=== PATIENT | female | born 1995 | race Caucasian/White ===

== ENCOUNTER 2022-01-21 15:00 | Emergency (ER) | payer OTHER, SELFPAY ==
--- NOTE | 2022-01-21 15:07 | ED.URI ---
HPI - URI/Sore Throat General Chief Complaint: Ear Stated Complaint: Ear Pain/Vomiting Time Seen by Provider: 01/21/22 15:08 Source: patient and RN notes reviewed History of Present Illness HPI Narrative: Patient is a 26-year-old female who presents the urgent care with complaints of right ear pain and vomiting. Patient states that the stomach flu is been going around work and after she was vomited on Wednesday evening she went home and started vomiting. Patient denies any abdominal pain or fever but states that she has had consistent nausea. Also reports of decreased urinary output with dark urine. Patient states the drainage from the right ear has been ongoing for several months and she has been cleaning out with Q-tips. Denies of any recent fever. No other acute complaints. No acute distress noted. Patient aware of the plan of care. Some parts of this dictation were generated by voice recognition software and may contain typographical and/or grammatical inaccuracies. Related Data Allergies Allergy/AdvReac Type Severity Reaction Status Date / Time red dye Allergy Unknown Nausea Verified 01/21/22 15:15 Review of Systems Review of Systems: CONSTITUTIONAL: Denies fever, chills, or sweats. EYES: Denies visual changes, redness, or discharge. ENT: Denies rhinorrhea, congestion, sore throat. Reports of drainage from the right ear CARDIOVASCULAR: Denies chest pain, palpitations, or edema. RESPIRATORY: Denies cough or dyspnea. GASTROINTESTINAL: Reports of nausea and vomiting without abdominal pain GENITOURINARY: Reports of decreased urinary output and dark urine SKIN: Denies rash or itching. MUSCULOSKELETAL: Denies back pain, joint pain, or myalgia. NEUROLOGIC: Denies headache, numbness, or weakness. All other systems reviewed are negative, except as documented in HPI. PMFSH Comments At the time of my signature, I reviewed and agree with the nursing past medical, surgical, social, and family history. There is no relevant family history pertinent to the patient complaint. Exam Narrative: GENERAL: This is a well-nourished, well-developed patient, in no apparent distress. HEAD: normocephalic, atraumatic. EYES: PERRL. Sclera clear/white. Vision is grossly intact. EARS: External ears normal, left auditory canal clear and without drainage, thick yellow drainage to the right auditory ear canal with inability to visualize right TM. Left TM normal without perforation. Hearing grossly intact. NOSE: External nose normal with no obvious nasal discharge, nares without redness, no rhinorrhea. THROAT: Mucous membranes moist, posterior pharynx clear. NECK: Neck supple CARDIOVASCULAR: Regular rate and rhythm without murmurs, gallops, or rubs. RESPIRATORY: Clear to auscultation. Breath sounds equal bilaterally. No wheezes, rales, or rhonchi. GASTROINTESTINAL: Abdomen soft, non-tender, nondistended. Bowel sounds are hypoactive. No guarding. SKIN: warm, intact with no suspicious lesions or rash, good texture and turgor. NEURO: awake, alert, and oriented to person, place and time. There were no obvious focal neurologic abnormalities. EXTREMITIES: No clubbing, cyanosis, or edema. BACK: No flank tenderness. Course Course Level of Care: Express Care Visit Vital Signs Vital signs: Vital Signs Temperature 98.8 F 01/21/22 15:09 Pulse Rate 82 01/21/22 15:09 Respiratory Rate 16 01/21/22 15:09 Blood Pressure 176/77 H 01/21/22 15:09 Pulse Oximetry 100 01/21/22 15:09 Temperature 98.8 F 01/21/22 15:09 Pulse Rate 82 01/21/22 15:09 Respiratory Rate 16 01/21/22 15:09 Blood Pressure 176/77 H 01/21/22 15:09 Pulse Oximetry 100 01/21/22 15:09 Reviewed-patient is informed that they may have pre-hypertension or hypertension based on a blood pressure reading in the department. I recommend the patient call the primary care provider listed on their discharge instructions or a physician of their choice this week to arrange follow-up fo
[2022-01-21 15:09] VITALS: BP 176/77; PULSE 82; RESP 16; TEMP 37.1; O2SAT 100
== END 2022-01-21 15:57 | disposition home or self-care (01) ==
PROVIDERS: Emergency Provider Nurse Practitioner Family
DX: H66.91 Otitis media, unspecified, right ear (principal); H60.91 Unspecified otitis externa, right ear; R11.2 Nausea with vomiting, unspecified
CPT/HCPCS: 81003; 99203; G0463

== ENCOUNTER 2022-05-15 14:17 | Emergency (ER) | payer OTHER, SELFPAY ==
[2022-05-15 14:21] VITALS: BP 113/78; PULSE 91; RESP 18; TEMP 36.7; O2SAT 100
--- NOTE | 2022-05-15 14:47 | ED.GENADULT ---
HPI - General Adult General Chief complaint: Nausea/Vomiting/Diarrhea Stated complaint: nausea headache body aches Time Seen by Provider: 05/15/22 14:30 Source: patient, RN notes reviewed and old records reviewed Mode of arrival: ambulatory Limitations: no limitations History of Present Illness HPI narrative: 27 year old female who presents to [facility] with complaints of nausea and vomiting , body aches with no fevers, and headaches for the past 2 days. Patient is very upset because her work is giving her a hard time because she called off of work. Patient states that she has had emesis X5 and continues to have nausea. Patient reports that she has had COVID vaccinations and was screened at work on Wednesday. MD complaint: nausea and vomiting, headaches, body aches Onset (ago): day(s) (2) Severity scale (1-10): 5 Quality: aching Related Data Allergies Allergy/AdvReac Type Severity Reaction Status Date / Time red dye Allergy Unknown Nausea Verified 05/15/22 14:49 Review of Systems Review of Systems: CONSTITUTIONAL: Denies fever, chills, or sweats. EYES: Denies visual changes, redness, or discharge. ENT: Denies rhinorrhea, congestion, sore throat, or otalgia. CARDIOVASCULAR: Denies chest pain, palpitations, or edema. RESPIRATORY: Denies cough or dyspnea. GASTROINTESTINAL: Denies abdominal pain,positive for nausea, vomiting, no diarrhea. GENITOURINARY: Denies dysuria or hematuria. SKIN: Denies rash or itching. MUSCULOSKELETAL: Denies back pain, joint pain, positive for body aches NEUROLOGIC: Positive for headache,no numbness, or weakness. PSYCHIATRIC: Denies anxiety or depression. All systems reviewed & are unremarkable except as noted in HPI and below PMFSH Past Medical History Medical History (Updated 05/16/22 @ 17:07 by Elda Thurman NP) Ear infection Foot fracture, right Surgical History Surgical History (Updated 05/16/22 @ 17:07 by Elda Thurman NP) History of ear surgery Status post right foot surgery X2 posterior tendon repair Social History Social History (Updated 05/16/22 @ 17:04 by Elda Thurman NP) Smoking packs per day: 0.5 Smoking cigarettes per day: 10.0 Years smoked: 5 Smoking pack-years: 2.50 Smoking status: Current every day smoker Tobacco type: cigarettes Alcohol intake: current Alcohol use details: social Substance use type: does not use Gender identity (if verbalized by the patient): Female Comments At time of signature, agree with nursing past medical, surgical, social and family history. There is no relevant family history pertinent to the presenting complaint Exam Narrative: GENERAL: Well-appearing, well-nourished, and in no acute distress.tearful over job issues HEAD: Normocephalic, atraumatic. EYES: PERRLA and EOMI. ENT: Nares clear, no rhinorrhea or epistaxis. Mucous membranes moist.TM;s normal with good light reflex, throat pink with no lesions or exudates or tonsil swelling NECK: Supple.no lymphadenopathy CHEST: Clear to auscultation. No respiratory distress. No cough or congestion SaO2 100% on room air HEART: Regular rate and rhythm. No murmur heard. Normal peripheral pulses. ABDOMEN: Soft, nontender, nondistended, normal active bowel sounds, No suprapubic tenderness, continued nausea with incidences of vomiting EXTREMITIES: Normal range of motion. No edema. SKIN: Warm, dry, no rash. NEURO: No focal deficits. Alert and oriented x3. Course Course Level of Care: Express Care Visit Vital Signs Vital signs: Vital Signs Temperature 36.7 C 05/15/22 14:21 Pulse Rate 91 05/15/22 14:21 Respiratory Rate 18 05/15/22 14:21 Blood Pressure 113/78 05/15/22 14:21 Pulse Oximetry 100 05/15/22 14:21 Oxygen Delivery Room Air 05/15/22 14:21 Temperature 36.7 C 05/15/22 14:21 Pulse Rate 91 05/15/22 14:21 Respiratory Rate 18 05/15/22 14:21 Blood Pressure 113/78 05/15/22 14:21 Pulse Oximetry 100 05/15/22 14:21 Oxygen Deli
== END 2022-05-15 15:10 | disposition home or self-care (01) ==
PROVIDERS: Emergency Provider Registered Nurse
DX: R11.2 Nausea with vomiting, unspecified (principal); Z20.822 Contact with and (suspected) exposure to COVID-19; F17.210 Nicotine dependence, cigarettes, uncomplicated
CPT/HCPCS: 87426; 99213; C9803; G0463

== ENCOUNTER 2022-08-30 14:54 | Emergency (ER) | payer OTHER, SELFPAY ==
[2022-08-30 15:04] VITALS: BP 121/54; PULSE 70; RESP 18; TEMP 37.1; O2SAT 99
--- NOTE | 2022-08-30 16:32 | ED.URI ---
HPI - URI/Sore Throat General Chief Complaint: Upper Respiratory Infection Stated Complaint: upper respiratory Source: patient and family (Significant other) Mode of arrival: ambulatory Limitations: no limitations History of Present Illness HPI Narrative: 27-year-old female presents to [facility] from his sore throat, fatigue, headache, cough, runny nose and nasal congestion for the past 4 days. Patient is currently 5 weeks . Patient is a smoker. Patient denies recent travel. Patient denies wheezing, shortness of breath, nausea vomiting with refill MD elicited complaint: rhinorrhea and nasal congestion Onset (ago): day(s) Severity: mild Able to tolerate fluids by mouth: Yes Treatments prior to arrival: cold medicine Related Data Allergies Allergy/AdvReac Type Severity Reaction Status Date / Time red dye Allergy Unknown Nausea Verified 08/30/22 15:46 Review of Systems Constitutional: Constitutional: Reports fatigue and Denies fever(s) ENT: Denies vertigo, Denies dizziness, Reports nasal congestion and Reports sore throat Respiratory: Respiratory: Reports cough, Denies dyspnea and Denies wheezing Gastrointestinal: Gastrointestinal: Denies diarrhea, Denies nausea and Denies vomiting Integumentary/Breasts: Skin/Breast: Denies rash Neurologic: Denies dizziness and Denies headache(s) Allergic/Immunologic: Allergic/Immunologic: Denies lip swelling, Denies throat swelling, Denies tongue swelling and Denies wheezing PMFSH Past Medical History Medical History Ear infection Foot fracture, right Surgical History Surgical History History of ear surgery Status post right foot surgery X2 posterior tendon repair Social History Social History Smoking packs per day: 0.5 Smoking cigarettes per day: 10.0 Years smoked: 5 Smoking pack-years: 2.50 Smoking status: Current every day smoker Tobacco type: cigarettes Alcohol intake: current Alcohol use details: social Substance use type: does not use Gender identity (if verbalized by the patient): Female Comments At time of signature, I agree with nursing past medical, surgical, social and family history. There is no relevant family history pertinent to the presenting complaint. Exam Const: General: healthy appearing, no acute distress and alert Nutritional Appearance: well nourished Orientation/consciousness: patient oriented x3 Limitations: no limitations HENMT: Head: normal to inspection Ears: external ears normal Face/Nose/Sinus: Normal external nose present Face and sinus: normal facial exam and sinuses nontender Mouth: Yes Normal oral and palatal mucosa present and Yes moist mucous membranes Teeth and gingiva: dentition normal Throat: posterior oropharynx normal and uvula midline Neck: Neck: normal visual inspection Resp: Effort & Inspection: normal respiratory effort and not labored Auscultation: clear to auscultation bilaterally, no crackles, no rales, no rhonchi and no wheezes Cardio: Rate: regular rate Rhythm: regular rhythm Heart sounds: no murmurs Skin: General skin exam: normal color Rashes: no rashes Neuro: Speech: normal speech Gait exam (Neuro): Normal gait present Psych: Affect: normal affect Attitude: cooperative Course Course Level of Care: Express Care Visit Vital Signs Vital signs: Vital Signs Temperature 37.1 C 08/30/22 15:04 Pulse Rate 70 08/30/22 15:04 Respiratory Rate 18 08/30/22 15:04 Blood Pressure 121/54 L 08/30/22 15:04 Pulse Oximetry 99 08/30/22 15:04 Oxygen Delivery Room Air 08/30/22 15:04 Temperature 37.1 C 08/30/22 15:04 Pulse Rate 70 08/30/22 15:04 Respiratory Rate 18 08/30/22 15:04 Blood Pressure 121/54 L 08/30/22 15:04 Pulse Oximetry 99 08/30/22 15:04 Oxygen Delivery Room Air 08/30
== END 2022-08-30 16:53 | disposition home or self-care (01) ==
PROVIDERS: Emergency Provider Nurse Practitioner Family
DX: O99.511 Diseases of the respiratory system complicating pregnancy, first trimester (principal); Z3A.01 Less than 8 weeks gestation of pregnancy; J06.9 Acute upper respiratory infection, unspecified; O98.511 Other viral diseases complicating pregnancy, first trimester; B34.9 Viral infection, unspecified; F17.210 Nicotine dependence, cigarettes, uncomplicated
CPT/HCPCS: 87804; 99213; G0463

== ENCOUNTER 2023-01-20 13:23 | Emergency (ER) | payer OTHER, SELFPAY ==
--- NOTE | 2023-01-20 13:37 | ED.URI ---
HPI - URI/Sore Throat General Chief Complaint: Upper Respiratory Infection Stated Complaint: Sore Throat Source: patient and RN notes reviewed History of Present Illness HPI Narrative: 27-year-old female presents to urgent care with complaints of a sore throat x2 days. Patient reports feeling warm at home but not sure of fever. Patient denies any ear pain, congestion, vomiting, chest pain, shortness of breath or abdominal pain. Patient has not been taking anything for her symptoms. Some parts of this dictation were generated by voice recognition software and may contain typographical and/or grammatical inaccuracies. Related Data Home Medications Medication Instructions Recorded Confirmed norgestimate 0.25 mg-ethinyl See Rx Instructions .Route .COMPLEX 01/20/23 01/20/23 estradiol 35 mcg tablet (Pricila) Allergies Allergy/AdvReac Type Severity Reaction Status Date / Time red dye Allergy Unknown Nausea Verified 01/20/23 13:44 Review of Systems Review of Systems: Pertinent positives and pertinent negatives per HPI. [facility] Past Medical History Medical History Ear infection Foot fracture, right Surgical History Surgical History History of ear surgery Status post right foot surgery X2 posterior tendon repair Social History Social History Smoking packs per day: 0.5 Smoking cigarettes per day: 10.0 Years smoked: 5 Smoking pack-years: 2.50 Smoking status: Current every day smoker Tobacco type: cigarettes Alcohol intake: current Alcohol use details: social Substance use type: does not use Gender identity (if verbalized by the patient): Female Comments At the time of my signature, I reviewed and agree with the nursing past medical, surgical, social, and family history. There is no relevant family history pertinent to the patient complaint. Exam Narrative: GENERAL: This is a well-nourished, well-developed patient, in no apparent distress. HEAD: normocephalic, atraumatic. EYES: PERRL. Sclera clear/white. Vision is grossly intact. EARS: External ears normal, auditory canals clear and without drainage, TMs normal without perforation. Hearing grossly intact. NOSE: External nose normal with no obvious nasal discharge, nares without redness, no rhinorrhea. THROAT: Mucous membranes moist, posterior pharynx erythemic. No exudate noted. NECK: Neck supple, non-tender without lymphadenopathy, masses or thyromegaly. CARDIOVASCULAR: Regular rate and rhythm without murmurs, gallops, or rubs. RESPIRATORY: Clear to auscultation. Breath sounds equal bilaterally. No wheezes, rales, or rhonchi. GASTROINTESTINAL: Abdomen soft, non-tender, nondistended. Bowel sounds are active. No hepato-splenomegaly, or palpable masses. No guarding. SKIN: warm, intact with no suspicious lesions or rash, good texture and turgor. NEURO: awake, alert, and oriented to person, place and time. There were no obvious focal neurologic abnormalities. Course Course Level of Care: Express Care Visit Vital Signs Vital signs: Vital Signs Temperature 98.1 F 01/20/23 13:42 Pulse Rate 88 01/20/23 13:42 Respiratory Rate 18 01/20/23 13:42 Blood Pressure 145/75 H 01/20/23 13:42 Pulse Oximetry 100 01/20/23 13:42 Oxygen Delivery Room Air 01/20/23 13:42 Temperature 98.1 F 01/20/23 13:42 Pulse Rate 88 01/20/23 13:42 Respiratory Rate 18 01/20/23 13:42 Blood Pressure 145/75 H 01/20/23 13:42 Pulse Oximetry 100 01/20/23 13:42 Oxygen Delivery Room Air 01/20/23 13:42 Reviewed MDM - URI/Sore Throat MDM Narrative Medical decision making narrative: Rapid strep is negative in the office; however we will send to the lab for confirmation; there is a small percentage chance that it can come back positive; if it is, we will call you in 2-3days; and your pr
[2023-01-20 13:42] VITALS: BP 145/75; PULSE 88; RESP 18; TEMP 36.7; O2SAT 100
== END 2023-01-20 14:00 | disposition home or self-care (01) ==
PROVIDERS: Emergency Provider Nurse Practitioner Family
DX: J02.9 Acute pharyngitis, unspecified (principal); F17.210 Nicotine dependence, cigarettes, uncomplicated
CPT/HCPCS: 87081; 87880; 99213; G0463

== ENCOUNTER 2024-06-26 17:16 | Inpatient (IN) | payer OTHER, SELFPAY ==
[2024-06-26] VITALS (56 sets, daily range): BP systolic 61–123; BP diastolic 27–89; PULSE 59–227; TEMP 36.6–36.7; O2SAT 95–100; BMI 24.5
--- NOTE | 2024-06-26 17:16 | LDADM ---
This patient, Ladan Rain, was admitted to Labor/Delivery/Recovery [facility] on 06/26/24 at 17:16. Plans for labor, pain management and were discussed with patient. Patient/family oriented to hospital policies and general routines including ID bracelet, bed and alarms, visiting hours, pain management, procedures, bathroom and other care routines, personal items, smoking policy, room service/diet and guest tray routines, infant security routines, and visiting hours. Patient/Family are encouraged to report perceived risks to care and to ask questions if they do not understand what they are told or what they should do. See OBIX for further documentation.
[2024-06-26 18:01] LABS: Basophils Percent Auto 0.4 % (0.2-1.2); Eosinophils Absolute Auto 0.1 K/mm3 (0-0.3); Eosinophils Percent Auto 0.7 % (0-4.4); Hemoglobin 9.9 g/dL (12.0-15.0); Immature Granulocyte Percent A 0.9 % (0-0.5); Lymphocytes Absolute Auto 1.68 K/mm3 (0.9-3.2); Lymphocytes Percent Auto 15.5 % (18.3-44.2); Mean Corpuscular HGB Conc 31.9 g/dl (32-36); Mean Corpuscular Hemoglobin 27.4 pg (26-34); Mean Corpuscular Volume 85.9 fl (80-100); Mean Platelet Volume 11.7 fl (7.4-10.4); Monocytes Absolute Auto 0.9 K/mm3 (0.1-0.6); Monocytes Percent Auto 7.8 % (2.6-8.5); Neutrophils Absolute Auto 8.1 K/mm3 (1.3-6.7); Neutrophils Percent Auto 74.7 % (45.5-73.1); Platelet Count Result 240 k/mm3 (150-375); Red Blood Count 3.61 M/mm3 (4.2-5.4); Red Cell Distribution Width 13.7 % (11.5-14.5); White Blood Count 10.9 K/mm3 (4.5-10.0)
[2024-06-26] MEDS: miSOPROStol 25 MCG TABLET 50 MCG BUCCAL (18:19)
[2024-06-26 19:05] LABS: HIV 1/2 Ab P24 Ag Result Negative (Negative)
[2024-06-26 20:03] LABS: Rapid Plasma Reagin Non-Reactive (NonReactive)
--- NOTE | 2024-06-26 20:42 | WPDANESEPP ---
Anes - Eval Pre Procedure Procedure: labor epidural Date/Time: 06/26/24 20:42 Surgeon: edie Preop Diagnosis: pain during labor Pre Op Diagnosis: IOL Patient Data Age: 29 Gender: F Height: 1.7 m Weight: 71 kg Last Vital Signs Temp 36.7 C 06/26/24 17:55 Pulse 227 H 06/26/24 20:31 BP 61/27 L 06/26/24 20:31 Pulse Ox 98 06/26/24 20:40 Allergies Allergy/AdvReac Type Severity Reaction Status Date / Time red dye Allergy Unknown Nausea Verified 05/31/24 13:40 Home Medications Medication Instructions Recorded Confirmed Type vits no.126-ferrous fum 1 tablet PO DAILY 05/31/24 05/31/24 History 28 mg iron-folic acid 800 mcg tablet (Classic ) Laboratory Tests 06/26/24 17:30 WBC 10.9 H K/mm3 (4.5-10.0) RBC 3.61 L M/mm3 (4.2-5.4) Hgb 9.9 L g/dL (12.0-15.0) Hct 31.0 L % (37.0-47.0) MCV 85.9 fl (80-100) MCH 27.4 pg (26-34) MCHC 31.9 L g/dl (32-36) RDW 13.7 % (11.5-14.5) Plt Count 240 k/mm3 (150-375) MPV 11.7 H fl (7.4-10.4) Immature Gran % (Auto) 0.9 H % (0-0.5) Neut % (Auto) 74.7 H % (45.5-73.1) Lymph % (Auto) 15.5 L % (18.3-44.2) Jay % (Auto) 7.8 % (2.6-8.5) Eos % (Auto) 0.7 % (0-4.4) Baso % (Auto) 0.4 % (0.2-1.2) Lymph # (Auto) 1.68 K/mm3 (0.9-3.2) Jay # (Auto) 0.9 H K/mm3 (0.1-0.6) Eos # (Auto) 0.1 K/mm3 (0-0.3) Baso # (Auto) 0.0 K/mm3 (0.0-0.1) Abs Immat Gran (auto) 0.10 H K/mm3 (0.00-0.031) Absolute Neuts (auto) 8.1 H K/mm3 (1.3-6.7) Absolute Nucleated RBC 0.000 K/mm3 (0.0-0.012) Nucleated RBC % 0.0 % (0.0-0.2) RPR Non-reactive (NonReactive) HIV 1&2 Ab/P24 Ag 4thGn Negative (Negative) Blood Type O Positive Antibody Screen Negative Patient hx anesthesia problems: none Family hx anesthesia problems: none Results Review: All pre-operative results and documents have been reviewed as part of the pre-operative evaluation. [facility] Past Medical History Medical History (Updated 06/26/24 @ 20:42 by Deanne Santiago CRNA) Ear infection Foot fracture, right IUP (intrauterine ), incidental Surgical History Surgical History History of ear surgery Status post right foot surgery X2 posterior tendon repair Family History Family History (Updated 05/31/24 @ 13:42 by Marlen Sherwood RN) Mother Diabetes mellitus Sibling Diabetes mellitus Social History Social History Smoking packs per day: 1 Smoking cigarettes per day: 20.0 Years smoked: 10 Smoking pack-years: 10.00 Smoking status: Former smoker Tobacco type: cigarettes Alcohol intake: current Alcohol use details: social Substance use: never Substance use type: does not use Do You Feel Safe in your Home?: Yes Lack of Transportation: No Lack of Food: Never True Current Housing: I Have Housing Concerned About Future Housing: No Difficulty Paying Gas/Electric Bills: No Difficulty Paying for Meds: No Currently Unemployed: No Education: High School Diploma/GED Difficulty w/ Childcare or Family Care: No Gender identity (if verbalized by the patient): Female Spiritual care concerns: No Exam Day of Procedure 06/26/24 20:42
[2024-06-26] MEDS: LACTATED RINGERS 1,000 ML 125 ML IV CONT (22:06)
[2024-06-26] MEDS: OXYTOCIN 30 UNITS/NS 500 ML 30 UNITS/500 ML BAG IV CONT (23:59)
[2024-06-27] VITALS (219 sets, daily range): BP systolic 86–142; BP diastolic 48–117; PULSE 39–202; RESP 18; TEMP 36.4–37.7; O2SAT 78–100
[2024-06-27] MEDS: LACTATED RINGERS 1,000 ML 125 ML IV CONT ×3 (02:41→12:47)
[2024-06-27 17:40] LABS: Amphetamine Screen Urine Negative (Negative); Barbiturate Screen Urine Negative (Negative); Benzodiazepines Screen Urine Negative (Negative); Cannabinoid Screen Urine Negative (Negative); Cocaine Screen Urine Negative (Negative); Methadone Screen Urine Negative (Negative); Opiate Screen Urine Negative (Negative); Phencyclidine Screen Urine Negative (Negative)
--- NOTE | 2024-06-27 18:21 | PM.IMHP ---
H&P: HPI History of Present Illness Date/Time: 06/27/24 08:15 Chief Complaint: elective induction of labor Narrative: Patient is a 29 year old who presents for elective induction of labor. Her has been complicated by marijuana use. She also had a positive UDS in the first trimester for amphetamines, however subsequent UDS was negative aside from marijuana. She denies strong contractions, LOF, or vaginal bleeding. She reports good movement. Review of Systems Review of Systems: All systems reviewed & are unremarkable except as noted in HPI and below PMFSH Past Medical History Medical History Ear infection Foot fracture, right IUP (intrauterine ), incidental Surgical History Surgical History History of ear surgery Status post right foot surgery X2 posterior tendon repair Family History Family History Mother Diabetes mellitus Sibling Diabetes mellitus Social History Social History Smoking packs per day: 1 Smoking cigarettes per day: 20.0 Years smoked: 10 Smoking pack-years: 10.00 Smoking status: Former smoker Tobacco type: cigarettes Alcohol intake: current Alcohol use details: social Substance use: never Substance use type: does not use Do You Feel Safe in your Home?: Yes Lack of Transportation: No Lack of Food: Never True Current Housing: I Have Housing Concerned About Future Housing: No Difficulty Paying Gas/Electric Bills: No Difficulty Paying for Meds: No Currently Unemployed: No Education: High School Diploma/GED Difficulty w/ Childcare or Family Care: No Gender identity (if verbalized by the patient): Female Spiritual care concerns: No Meds Home Medications and Allergies Home Medications Medication Instructions Recorded Confirmed Type vits no.126-ferrous fum 1 tablet PO DAILY 05/31/24 05/31/24 History 28 mg iron-folic acid 800 mcg tablet (Classic ) Allergies Allergy/AdvReac Type Severity Reaction Status Date / Time red dye Allergy Unknown Nausea Verified 05/31/24 13:40 Vital Signs Vital Signs - 24 hr 06/26/24 18:23 06/26/24 18:29 06/26/24 18:43 Temperature Pulse Rate 77 71 Respiratory Rate Blood Pressure 116/81 123/74 Pulse Oximetry 98 06/26/24 18:48 06/26/24 18:53 06/26/24 18:58 Temperature Pulse Rate Respiratory Rate Blood Pressure Pulse Oximetry 100 100 100 06/26/24 19:00 06/26/24 19:03 06/26/24 19:08 Temperature Pulse Rate 65 Respiratory Rate Blood Pressure 119/89 Pulse Oximetry 100 100 06/26/24 19:13 06/26/24 19:18 06/26/24 19:23 Temperature Pulse Rate Respiratory Rate Blood Pressure Pulse Oximetry 100 100 100 06/26/24 19:28 06/26/24 19:29 06/26/24 19:33 Temperature Pulse Rate 60 Respiratory Rate Blood Pressure 110/71 Pulse Oximetry 100 99 06/26/24 19:38 06/26/24 19:43 06/26/24 19:48 Temperature Pulse Rate Respiratory Rate Blood Pressure Pulse Oximetry 97 99 98 06/26/24 19:53 06/26/24 19:58 06/26/24 19:59 Temperature Pulse Rate 75 Respiratory Rate Blood Pressure 102/58 L Pulse Oximetry 98 98 06/26/24 20:03 06/26/24 20:08 06/26/24 20:13 Temperature Pulse Rate Respiratory Rate Blood Pressure Pulse Oximetry 99 99 98 06/26/24 20:18 06/26/24 20:23 06/26/24 20:30 Temperature Pulse Rate Respiratory Rate Blood Pressure Pulse Oximetry 98 99 95 06/26/24 20:31 06/26/24 20:35 06/26/24 20:40 Temperature Pulse Rate 227 H Respiratory Rate Blood Pressure 61/27 L Pulse Oximetry 99 98 06/26/24 20:45 06/26/24 20:50 06/26/24 20:55 Temperature Pulse Rate Respiratory Rate Blood Pressu
[2024-06-27] MEDS: ACETAMINOPHEN 500 MG TABLET 1000 MG PO (18:58)
[2024-06-27] MEDS: OXYTOCIN 30 UNITS/NS 500 ML 30 UNITS/500 ML BAG IV CONT (21:42)
[2024-06-28] VITALS (49 sets, daily range): BP systolic 102–150; BP diastolic 56–128; PULSE 53–132; RESP 16–19; TEMP 36.3–37.7; O2SAT 81–100
[2024-06-28] MEDS: LACTATED RINGERS 1,000 ML 999 ML IV CONT (01:20)
--- NOTE | 2024-06-28 01:20 | WPDHPUPDATE1 ---
History and Physical Update Update Date/Time: 06/28/24 01:20 History and Physical has been reviewed, including an updated exam of the patient. Patient has been complete and pushing x3.5 hours. position ROP, no change with attempted manual rotation or position changes. Risks, benefits, and alternatives have been discussed and questions answered. Patient agrees to proceed with primary c section for arrested second stage of labor.
[2024-06-28] MEDS: ONDANSETRON INJ 4 MG/2 ML VIAL IV PUSH (01:28)
[2024-06-28] MEDS: FAMOTIDINE 20 MG/2 ML VIAL IV PUSH (01:28)
[2024-06-28] MEDS: ceFAZolin 2 GM/D5W 50 ML 2 GM/50 ML BAG IVPB (01:38)
[2024-06-28] MEDS: AZITHROMYCIN 500 MG/NS 250 ML 500 MG/250 ML BAG 250 MG IVPB (01:38)
--- NOTE | 2024-06-28 02:31 | P.PCNOB_ITS ---
OB - Delivery Note Procedure Delivery date: 06/28/24 Pre-op diagnosis: Arrest of Decent and Elective Induction of Labor Post-op Diagnosis: Same Induction method: Per Misoprostol Protocol Delivery augmentation: Rupture of Membranes and Pitocin Delivery monitor: External FHT and External Uterine Prior to decision for section, ACOG/SM labor guidelines were considered and discussed with the patient and staff. Decision made to proceed with the section.: Yes Procedure Performed: Primary Primary branch: low cervical, transverse Surgeon: Alfa Strong MD Anesthesia type: General Description of Procedure/Findings: The patient was taken to the operating room where she was placed in the dorsal supine position with a leftward tilt. The electronic monitor was placed and heart rate was found to be reassuring. She was prepped and draped in the normal sterile fashion, and anesthesia was not adequate. GETA was then induced by anesthesia. When cleared, a Pfannenstiel skin incision was made with the scalpel and carried through to the underlying layer of fascia with the scalpel. The fascia was incised in the midline and the incision extended laterally bluntly. The rectus muscles were then in the midline, and the peritoneum entered bluntly. The peritoneal incision was extended superiorly and inferiorly with good visualization of the bladder. With the bladder blade providing retraction and visualization, the lower uterine segment was incised in a transverse fashion with the scalpel. The uterine incision was then extended laterally. The bladder blade was removed and the 's head was elevated and delivered atraumatically. The remainder of the was then delivered without difficulty, and the 's nose and mouth were suctioned with the bulb suction. The umbilical cord was doubly clamped and cut. The was then handed off to the waiting nursing staff. Specimens then obtained as listed below. The placenta was then removed manually and the uterus was exteriorized and cleared of all clots and debris. The uterine incision was repaired with 0- Monocryl in a running, interlocked fashion. A second layer of the same suture imbricated the incision and ensured hemostasis. The posterior cul-de-sac was manually cleared of all clots and debris. The uterus was returned to the abdomen. The gutters were then manually cleared of all clots and debris.? The uterine incision was visualized to be hemostatic. The fascia was reapproximated with 0-Vicryl in a running fashion. The subcutaneous tissues were irrigated with warmed normal saline, and hemostasis was assured. The skin was closed with 4-0 monocryl in a running subcuticular stitch. Fundal pressure was applied to express remaining intrauterine clots and debris. The patient tolerated the procedure well. Sponge, lap, and needle counts were correct times three per nursing. The patient was taken to the recovery room in stable condition. Estimated Blood Loss: 345 Pathology: None sent Complications: No immediate complications Condition: Stable Disposition: Floor Baby Date of : 06/28/24 Gestational Age by Date: 39 Infant gender: Male presentation: vertex position: Right Occiput Posterior Placenta delivery description: Expressed Cord Vessel Description: 3 Vessels and Nuchal Cord
--- NOTE | 2024-06-28 04:29 | PC.NURSE ---
FHT noted to be in 140's in OR prior to c/s. Tracing copied and placed in chart
--- NOTE | 2024-06-28 04:47 | OBPPTRN ---
Patient transferred to post room #278 via stretcher. Support person present. Oriented to unit, room, information board, rooming in, admission packet and security measures. Patient verbalizes understanding.
[2024-06-28] MEDS: OXYTOCIN 30 UNITS/NS 500 ML 30 UNITS/500 ML BAG 125 UNITS (05:10)
[2024-06-28] MEDS: ACETAMINOPHEN 325 MG TABLET 650 MG PO ×3 (05:36→19:58)
[2024-06-28] MEDS: KETOROLAC 15 MG/ML VIAL (*BKC) IV PUSH ×3 (05:36→19:58)
[2024-06-28] MEDS: MULTIVIT/MIN/PREN/FOL AC/IRON TABLET 1 TAB PO (09:10)
[2024-06-28] MEDS: LIDOCAINE 5% PATCH 1 PATCH TRANSDERM (09:10)
[2024-06-28] MEDS: SIMETHICONE 80 MG TAB.CHEW PO ×3 (09:10→16:20)
[2024-06-28] MEDS: POLYSACCHARIDE IRON COMPLEX 150 MG CAPSULE PO ×2 (09:11→16:21)
[2024-06-28] MEDS: DOCUSATE SODIUM 100 MG CAPSULE PO ×2 (09:11→16:20)
[2024-06-28] MEDS: DEXTROSE 5%/0.45% SOD CHL 1,000 ML 125 ML (09:22)
--- NOTE | 2024-06-28 12:38 | PC.NURSE ---
Introductions were made, then consulted with patient to assess needs related to . Discussed with mother her?plans to feed?her and the?experience so far. Per mother she wishes to only formula feed baby and not put baby to breast or use the breast pump. Resources provided for inpatient and outpatient services with the feeding sheet, mom/baby guide and name written on the communication board. Mother voiced understanding of information and will call if there is a request for assistance. Reported to the Primary RN.
--- NOTE | 2024-06-28 13:50 | WPDANLDNPN2 ---
Anes-Prog Note L&D-Neuraxial Date/Time: 06/28/24 13:50 Neuraxial medications: intrathecal PF morphine Opiod-related complaints: none Patient feedback: Patient satisfied with post-operative pain management.
--- NOTE | 2024-06-28 13:50 | WPDANLDPN2 ---
Anes-Prog Note L&D Date/Time: 06/28/24 13:50 Comfortable throughout: section Neuraxial method: spinal Epidural/Spinal procedure site: clean & non-tender Neuro status: Neuro function grossly intact. Cardiovascular status: normal Respiratory status: normal Airway patency: baseline Mental status: baseline Post-Op hydration status: normal Vital Signs: Last Vital Signs Temp 36.8 C 06/28/24 12:23 Pulse 57 L 06/28/24 12:23 Resp 16 06/28/24 12:23 BP 102/56 L 06/28/24 12:23 Pulse Ox 100 06/28/24 12:23 O2 Del Method Room Air 06/28/24 02:41 Pain score (VAS): 1 I/O: Intake & Output 06/27/24 06/28/24 06/28/24 23:59 07:59 15:59 Intake Total 1043.3 Output Total 1240 Balance 1043.3 -1240 Post-procedural complaints: none Patient feedback: Patient satisfied with anesthetic care.
[2024-06-29 02:40] VITALS: BP 102/64; PULSE 70; RESP 16; TEMP 36.6; O2SAT 99
[2024-06-29] MEDS: ACETAMINOPHEN 325 MG TABLET 650 MG PO ×3 (02:50→16:51)
[2024-06-29] MEDS: IBUPROFEN 600 MG TABLET PO ×3 (02:50→16:51)
--- NOTE | 2024-06-29 07:23 | PM.OBPNVD ---
OB - PN: Subj Subjective Date/time seen: 06/29/24 07:23 Patient comments: no complaints, pain well controlled, tolerating diet and flatus present OB - PN: Obj Data Labs 06/26/24 17:30 OB - PN A/P Plan day: 1 Comments: Post Op LTCS - no problems, routine recovery Time Spent With Patient Time: Total time spent is greater than 50% in coordination of care (as documented) at patient's floor/unit and/or counseling patient: Exam Const: General: cooperative, healthy appearing, comfortable and no acute distress Resp: Auscultation: no crackles, no rales, no rhonchi and no wheezes Cardio: Rhythm: regular rhythm Heart sounds: no click and no murmurs GI: Inspection: non-distended Auscultation: normal bowel sounds Extrem: General: normal to inspection, no pedal edema and no calf tenderness
[2024-06-29 07:40] VITALS: BP 120/70; PULSE 75; RESP 16; TEMP 36.3; O2SAT 98
[2024-06-29] MEDS: MULTIVIT/MIN/PREN/FOL AC/IRON TABLET 1 TAB PO (07:58)
[2024-06-29] MEDS: POLYSACCHARIDE IRON COMPLEX 150 MG CAPSULE PO ×2 (07:58→16:52)
[2024-06-29] MEDS: SIMETHICONE 80 MG TAB.CHEW PO ×3 (07:59→16:51)
[2024-06-29] MEDS: DOCUSATE SODIUM 100 MG CAPSULE PO ×2 (07:59→16:52)
[2024-06-29 08:18] LABS: Basophils Percent Auto 0.2 % (0.2-1.2); Eosinophils Absolute Auto 0.3 K/mm3 (0-0.3); Eosinophils Percent Auto 2.2 % (0-4.4); Hematocrit 23.3 % (37.0-47.0); Hemoglobin 7.2 g/dL (12.0-15.0); Immature Granulocyte Absolute 0.11 K/mm3 (0.00-0.031); Immature Granulocyte Percent A 0.9 % (0-0.5); Lymphocytes Absolute Auto 1.86 K/mm3 (0.9-3.2); Lymphocytes Percent Auto 14.9 % (18.3-44.2); Mean Corpuscular HGB Conc 30.9 g/dl (32-36); Mean Corpuscular Hemoglobin 27.5 pg (26-34); Mean Corpuscular Volume 88.9 fl (80-100); Mean Platelet Volume 11.7 fl (7.4-10.4); Monocytes Absolute Auto 0.8 K/mm3 (0.1-0.6); Monocytes Percent Auto 6.3 % (2.6-8.5); Neutrophils Absolute Auto 9.4 K/mm3 (1.3-6.7); Neutrophils Percent Auto 75.5 % (45.5-73.1); Platelet Count Result 173 k/mm3 (150-375); Red Blood Count 2.62 M/mm3 (4.2-5.4); Red Cell Distribution Width 14.5 % (11.5-14.5); White Blood Count 12.5 K/mm3 (4.5-10.0)
--- NOTE | 2024-06-29 13:56 | WPDANLDPN2 ---
Anes-Prog Note L&D Date/Time: 06/29/24 13:56 Comfortable throughout: section Neuraxial method: epidural Epidural/Spinal procedure site: clean & non-tender Neuro status: Neuro function grossly intact. Cardiovascular status: normal Respiratory status: normal Airway patency: baseline Mental status: baseline Post-Op hydration status: normal Vital Signs: Last Vital Signs Temp 36.3 C L 06/29/24 07:40 Pulse 75 06/29/24 07:40 Resp 16 06/29/24 07:40 BP 120/70 06/29/24 07:40 Pulse Ox 98 06/29/24 07:40 O2 Del Method Room Air 06/28/24 08:00 Pain score (VAS): 4/10 I/O: Intake & Output 06/28/24 06/29/24 06/29/24 23:59 07:59 15:59 Intake Total 400 820 Output Total 550 1350 Balance -150 -530 Post-procedural complaints: none Patient feedback: Patient satisfied with anesthetic care.
--- NOTE | 2024-06-29 13:57 | WPDANESPN ---
Anes - Prog Note Post-Op Date/Time: 06/29/24 13:57 Cardiovascular status: normal Respiratory status: normal Airway patency: baseline Mental status: baseline Post-Op hydration status: normal Vital Signs: Last Vital Signs Temp 36.3 C L 06/29/24 07:40 Pulse 75 06/29/24 07:40 Resp 16 06/29/24 07:40 BP 120/70 06/29/24 07:40 Pulse Ox 98 06/29/24 07:40 O2 Del Method Room Air 06/28/24 08:00 Pain Score (VAS): 01/11 I/O: Intake & Output 06/28/24 06/29/24 06/29/24 23:59 07:59 15:59 Intake Total 400 820 Output Total 550 1350 Balance -150 -530 Laboratory Tests 06/29/24 07:42 06/29/24 07:42 WBC 12.5 H RBC 2.62 L Hgb 7.2 L Hct 23.3 L MCV 88.9 MCH 27.5 MCHC 30.9 L RDW 14.5 Plt Count 173 MPV 11.7 H Immature Gran % (Auto) 0.9 H Neut % (Auto) 75.5 H Lymph % (Auto) 14.9 L Burnett % (Auto) 6.3 Eos % (Auto) 2.2 Baso % (Auto) 0.2 Lymph # (Auto) 1.86 Burnett # (Auto) 0.8 H Eos # (Auto) 0.3 Baso # (Auto) 0.0 Abs Immat Gran (auto) 0.11 H Absolute Neuts (auto) 9.4 H Absolute Nucleated RBC 0.000 Nucleated RBC % 0.0 Post-procedural complaints: none Patient Feedback: Patient satisfied with anesthetic care.
[2024-06-29 21:00] VITALS: BP 116/77; PULSE 59; RESP 16; TEMP 37.1; O2SAT 98
[2024-06-30] MEDS: ACETAMINOPHEN 325 MG TABLET 650 MG PO ×4 (01:16→19:24)
[2024-06-30] MEDS: IBUPROFEN 600 MG TABLET PO ×4 (01:16→19:24)
[2024-06-30] MEDS: POLYSACCHARIDE IRON COMPLEX 150 MG CAPSULE PO (07:07)
[2024-06-30] MEDS: DOCUSATE SODIUM 100 MG CAPSULE PO (07:07)
[2024-06-30] MEDS: SIMETHICONE 80 MG TAB.CHEW PO ×2 (07:07→12:57)
[2024-06-30 08:05] VITALS: BP 118/75; PULSE 49; RESP 18; TEMP 36.6; O2SAT 98
--- NOTE | 2024-06-30 09:12 | PM.OBPNVD ---
OB - PN: Subj Subjective Date/time seen: 06/30/24 09:12 Interval history: POD#2 s/p PLTCS under general anesthesia Pain controlled Voiding without issue Passing flatus Tolerating general diet Baby under bili lights OB - PN: Obj Data Labs 06/29/24 07:42 OB - PN A/P Assessment and Plan (1) S/P : Code(s): Z98.891 - History of uterine scar from previous surgery Status: Acute Plan day: 2 Plan: routine care Time Spent With Patient Time: Total time spent is greater than 50% in coordination of care (as documented) at patient's floor/unit and/or counseling patient: Review of Systems Review of Systems: All systems reviewed & are unremarkable except as noted in HPI and below Exam Const: General: comfortable and no acute distress Orientation/consciousness: patient oriented x3 Resp: Effort & Inspection: normal respiratory effort GI: GI Palp: Yes Soft to palpation and No Tenderness to palpation present (GI) Other: incision c/d/i
[2024-06-30 20:00] VITALS: BP 112/66; PULSE 62; RESP 16; TEMP 36.8; O2SAT 98
[2024-07-01] MEDS: ACETAMINOPHEN 325 MG TABLET 650 MG PO ×2 (01:10→09:40)
[2024-07-01] MEDS: IBUPROFEN 600 MG TABLET PO ×2 (01:10→09:43)
--- NOTE | 2024-07-01 08:23 | PM.OBPNVD ---
OB - PN: Subj Subjective Date/time seen: 07/01/24 08:23 Interval history: POD#2 s/p PLTCS under general anesthesia Pain controlled Voiding without issue Passing flatus Tolerating general diet Baby under bili lights Patient comments: no complaints, pain well controlled, incisional pain, tolerating diet and flatus present OB - PN: Obj Data Labs 06/29/24 07:42 OB - PN A/P Plan day: 3 Plan: routine care, discharge home and other Comments: Incision check in one week. Given precautions Time Spent With Patient Time: Total time spent is greater than 50% in coordination of care (as documented) at patient's floor/unit and/or counseling patient: Exam Const: General: comfortable, no acute distress and alert Resp: Effort & Inspection: normal respiratory effort Auscultation: no crackles, no rales and no rhonchi Cardio: Rate: regular rate Heart sounds: no click, no murmurs and no rubs GI: Inspection: non-distended GI Palp: No Tenderness to palpation present (GI) Auscultation: normal bowel sounds Other: Incision - CDI Extrem: General: normal to inspection, no pedal edema and no calf tenderness
--- NOTE | 2024-07-01 08:23 | PM.OBDSVD ---
DS: Admitting Diagnosis Discharge Date July 01, 2024 Admitting Diagnosis term DS: Discharge Diagnosis Discharge Diagnosis (1) S/P : Code(s): Z98.891 - History of uterine scar from previous surgery Status: Acute OB - DS: Summary OB Procedures : None OB Procedures Intrapartum: OB Procedures: : None Peripartum Data Procedures: Procedures Operation Date: 06/28/24 01:15 Actual Procedure Side Surgeon p Section Alfa Strong MD Time Spent with Patient Time attestation: Total time spent providing and/or coordinating discharge services: DS: Data Data Completed and Pending Pending studies at discharge: Pending at discharge 06/28/24 02:10 Surgical [PTH] Routine Discharge Plan Discharge Discharging Clinician: Jeremy Brenner Patient Disposition: Home, Self-Care Activity: pelvic rest Diet: regular Patient Instructions: Antibiotic Form Stand Alone Forms: General Discharge Information Follow-up/Referrals: Jeremy Brenner MD [Physician] - Discharge Medications: New oxycodone-acetaminophen 5-325 mg tablet 1 tablet PO Q4H PRN (Reason: pain) Qty: 25 0RF Continued Classic 28 mg iron- 800 mcg Tablet 1 tablet PO DAILY Date of admission: 06/26/24 17:16 Primary Care Provider: UNKNOWN,DOCTOR Admitting Provider: Alfa Strong Attending physician on admission: Alfa Strong Condition: Stable
[2024-07-01] MEDS: DOCUSATE SODIUM 100 MG CAPSULE PO (09:37)
[2024-07-01] MEDS: MULTIVIT/MIN/PREN/FOL AC/IRON TABLET 1 TAB PO (09:38)
[2024-07-01] MEDS: POLYSACCHARIDE IRON COMPLEX 150 MG CAPSULE PO (09:38)
[2024-07-01 09:40] VITALS: BP 138/83; PULSE 45; RESP 16; TEMP 36.7; O2SAT 97
[2024-07-03 11:44] VITALS: BP 127/82; PULSE 67; RESP 16; TEMP 37.3
--- NOTE | 2024-07-03 13:00 | PC.NURSE ---
Mother here for follow up visit. Disclosed to follow-up RN Essence that she decided last night that she would breastfeed. She stated that the baby was going for it so she decided to give it a try and would now like to attempt and needed a breast pump. Patient seen in room 114. Mother stated that it was time for to eat so we attempted to place to breast. Mothers nipples are small and inverted. was unable to maintain latch, a nipple shield was introduced. Reviewed good handwashing, cleaning the nipple shield and the appropriate way to apply and use as a tool. Discussed with mom the nipple shield precautions, possible complications associated with the risks and benefits. Reviewed practicing with a nipple shield, then without and how to protect the milk supply and production. Mom and baby guide referred to as a resource for outpatient services, community resources and when to call a provider. Mom voiced understanding of the importance of hand expression, nipple stimulation and initiating a pumping schedule if infant continues to nurse with the shield. Discussed that at infants follow up appointment tomorrow to discuss the recent change to and inform provider that she was seen by today. Mother was in need of a breast pump. A Zomee pump was given to patient at this time. Instructions given on cleaning, care, usage, that there should be no pain, pumping schedule for milk production, collection, and storage of human milk. Patient was assessed for correct placement, flange size, to pump for comfort and nipple stretching/stimulation for adequate milk production every 3 hours (8 times in 24 hours) 1-2 times at night. Flange size (for zomee pump) was 21mm. Nipples measure as 18mm. Parents are encouraged to record the pumping schedule on the feeding sheet.?Mother voiced understanding of the education shared along with mom/baby guide and the pump measurement, flange fit handout for additional resource information. Suggested that patient purchase the correct nipple shield size (21mm) for a proper fit. 24mm nipple shield given at this time. (Hospital does not have other sizes) Handouts were provided with education for: is my baby getting enough milk? pump primer, nipple shield pro's and con's and mother baby guide.
== END 2024-07-01 15:35 | disposition home or self-care (01) | DRG 540 ==
LOC: ANHLDR 06-28 04:55 → ANHOB2 07-01 08:25 → ANHLDR 07-04 07:28 → ANHOB2 07-04 07:28
PROVIDERS: Admitting Provider Obstetrics & Gynecology; Visit Provider Obstetrics & Gynecology
PROC: 10D00Z1 Extraction of Products of Conception, Low, Open Approach (ICD-10-PCS; CPT 59514; principal; 2024-06-28 01:15)
DX: O62.1 Secondary uterine inertia (principal); O69.81X0 Labor and delivery complicated by cord around neck, without compression, not applicable or unspecified; Z87.891 Personal history of nicotine dependence; Z23 Encounter for immunization; Z3A.39 39 weeks gestation of pregnancy; Z37.0 Single live birth
CPT/HCPCS: 36415; 80307; 85025; 86592; 86703; 86850; 86900; 86901; 88307; A9270; G0432; J0330; J0456; J0690; J1100; J1885; J2274; J2371; J2405; J2590; J2795; J3010; J7120